=== PATIENT | female | born 1995 | race Hispanic/Latino ===

== ENCOUNTER 2018-04-12 16:59 | Emergency (ER) | payer SELFPAY ==
[2018-04-12] MEDS ORDERED: traMADol HCl 50 MG TAB ONE (18:21)
== END 2018-04-12 18:26 | disposition home or self-care (01) ==
LOC: ERS 16:59
DX: K03.81 Cracked tooth (principal); K02.9 Dental caries, unspecified; F41.9 Anxiety disorder, unspecified
CPT/HCPCS: 99282

== ENCOUNTER 2018-04-19 11:19 | Emergency (ER) | payer SELFPAY ==
[2018-04-19 12:42] LABS: Bilirubin Negative (Negative); Blood, Urine Negative (Negative); Clarity CLEAR (Clear); Glucose, Urine (Dipstick) Negative (Negative); Leukocyte Negative (Negative); Nitrite Negative (Negative); Protein, Urine (Dipstick) Negative (Neg-Trace); Specific Gravity, Urine 1.025 (1.002-1.036); Urobilinogen 0.2 mg/dL (0.2-1.0); pH, Urine 6.5 (5.0-9.0)
[2018-04-19 12:47] LABS: Pregnancy Test - Urine (BHCG) Negative (Negative); Pregu Control Background? CLEAR/WHITE (CLR/WHITE); Pregu Control Bar Appear? YES (CONTROL BAR); Specific Gravity 1.025 (1.002-1.036)
[2018-04-19] MEDS ORDERED: Azithromycin 250 MG TAB ONE (13:04)
[2018-04-19] MEDS ORDERED: cefTRIAXone\\ROCEPHIN 250 MG VIAL ONE (13:04)
[2018-04-19] MEDS ORDERED: Lidocaine 1% PF 5 ML VIAL ONE (13:04)
== END 2018-04-19 13:48 | disposition home or self-care (01) ==
LOC: ERS 11:19
DX: N72 Inflammatory disease of cervix uteri (principal); F41.9 Anxiety disorder, unspecified; Z87.891 Personal history of nicotine dependence; Z71.6 Tobacco abuse counseling
CPT/HCPCS: 81003; 81025; 87086; 87480; 87491; 87510; 87591; 87660; 96372; 99406; J0696; J2001